=== PATIENT | female | born 1970 | race Caucasian/White ===

== ENCOUNTER 2022-09-08 15:39 | Emergency (ER) | payer OTHER, SELFPAY ==
--- NOTE | 2022-09-08 15:43 | ED.URI ---
HPI - URI/Sore Throat General Chief Complaint: Upper Respiratory Infection Stated Complaint: HOARSE/SORE THROAT/EARACHE Time Seen by Provider: 09/08/22 15:44 Source: patient and RN notes reviewed History of Present Illness HPI Narrative: Patient is a 52-year-old female who presents to urgent care with complaints of hoarseness, sore throat and bilateral earache. Patient also reports of a nonproductive cough. States that symptoms started approximately a week and half ago. Patient is in town from [place] to stay with her father who had bypass surgery. Patient states that he was also diagnosed with pneumonia recently and she has been staying at his home. Patient states she does suffer from chronic allergies and has been using [id number] Sudafed, Mucinex D and her inhaler. Patient denies any shortness of breath, fever, nausea, vomiting or chest discomfort. No other acute complaints. No acute distress noted. Patient aware of the plan of care. Some parts of this dictation were generated by voice recognition software and may contain typographical and/or grammatical inaccuracies. Related Data Home Medications Medication Instructions Recorded Confirmed albuterol sulfate 90 mcg/actuation 2 inh inhalation DIRECTED 09/08/22 09/08/22 aerosol inhaler bupropion HCl 300 mg 24 hr tablet, 300 mg PO DAILY 09/08/22 09/08/22 extended release cholestyramine-aspartame 4 gram 1 ea PO DAILY 09/08/22 09/08/22 oral powder for susp in a packet (Prevalite) estradiol 0.025 mg/24 hr weekly 1 patch transdermal WEEKLY 09/08/22 09/08/22 transdermal patch (Climara) lisinopril 20 1 tablet PO DAILY 09/08/22 09/08/22 mg-hydrochlorothiazide 25 mg tablet omeprazole 20 mg capsule,delayed 20 mg PO DAILY 09/08/22 09/08/22 release oxycodone 5 mg tablet 5 mg PO DIRECTED 09/08/22 09/08/22 ustekinumab 90 mg/mL subcutaneous 90 mg subcut DIRECTED 09/08/22 09/08/22 syringe (Stelara) venlafaxine 75 mg capsule,extended 75 mg PO DAILY 09/08/22 09/08/22 release 24 hr Allergies Allergy/AdvReac Type Severity Reaction Status Date / Time amoxicillin [From Augmentin] AdvReac Other Verified 09/08/22 16:04 clarithromycin [From Biaxin] AdvReac Other Verified 09/08/22 16:04 clavulanic acid AdvReac Other Verified 09/08/22 16:05 [From Augmentin] Review of Systems Review of Systems: CONSTITUTIONAL: Denies fever, chills, or sweats. EYES: Denies visual changes, redness, or discharge. ENT: Reports of congestion, bilateral otalgia, sore throat and hoarseness CARDIOVASCULAR: Denies chest pain, palpitations, or edema. RESPIRATORY: Reports nonproductive cough without dyspnea GASTROINTESTINAL: Denies abdominal pain, nausea, vomiting, or diarrhea. GENITOURINARY: Denies dysuria or hematuria. SKIN: Denies rash or itching. MUSCULOSKELETAL: Denies back pain, joint pain, or myalgia. NEUROLOGIC: Denies headache, numbness, or weakness. All other systems reviewed are negative, except as documented in HPI. PMFSH Comments At the time of my signature, I reviewed and agree with the nursing past medical, surgical, social, and family history. There is no relevant family history pertinent to the patient complaint. Exam Narrative: GENERAL: This is a well-nourished, well-developed patient, in no apparent distress. HEAD: normocephalic, atraumatic. EYES: PERRL. Sclera clear/white. Vision is grossly intact. EARS: External ears normal, auditory canals clear and without drainage, TMs normal without perforation. Hearing grossly intact. NOSE: External nose normal with no obvious nasal discharge, nares without redness, no rhinorrhea. THROAT: Mucous membranes moist, moderate postnasal drainage; [place] hoarse, consistent with laryngitis NECK: Neck supple, non-tender without lymphadenopathy CARDIOVASCULAR: Regular rate and rhythm RESPIRATORY: Clear to auscultation. Breath sounds equal bilaterally. No wheezes, rales, or rhonchi. Mild dry cough noted on exam SKIN
[2022-09-08 15:52] VITALS: BP 148/91; PULSE 96; RESP 20; TEMP 36.4; O2SAT 97
== END 2022-09-08 16:11 | disposition home or self-care (01) ==
PROVIDERS: Emergency Provider Nurse Practitioner Family
DX: J40 Bronchitis, not specified as acute or chronic (principal); J04.0 Acute laryngitis; I10 Essential (primary) hypertension; K50.90 Crohn's disease, unspecified, without complications; F41.9 Anxiety disorder, unspecified; F32.A Depression, unspecified
CPT/HCPCS: 99213; G0463